=== PATIENT | female | born 1955 | race Caucasian/White ===

== ENCOUNTER 2020-01-04 10:15 | Emergency (ER) | payer BC, SELFPAY ==
[2020-01-04 10:40] VITALS: BP 122/73; PULSE 85; RESP 18; TEMP 36.8; O2SAT 98; BMI 27.9
--- NOTE | 2020-01-04 11:53 | ED_ITS ---
HPI - Extremity Problem <Liza Walsh PA-C - Last Filed: 01/04/20 14:00> General Chief complaint: Extremity Problem,Nontraumatic Stated complaint: something wrong with left leg Time Seen by Provider: 01/04/20 10:56 Source: patient Mode of arrival: Ambulatory Limitations: no limitations History of Present Illness HPI Narrative: This is a 64-year-old generally healthy woman with a history of hypothyroid and gastric ulcers who presents to the emergency department complaining of left calf pain for the last 3 weeks intermittently that has been worsening. She states the pain is always in the back of her calf and feels very deep sometimes it is lower in her calf sometimes it is behind her knee and occasionally it is in the back of her lower thigh just above her knee she describes it as like a tight blood pressure cuff and also like a burning sensation. She said last night was so bad she just could not even get in a good position to sleep. She and her are currently living locally [place] a boat however they just returned from a cross-country RV trip about 2 weeks ago. Her symptoms began 3 weeks ago during this trip and they note that she rarely had a chance to get out and walk around as they were attempting to social distance so they spent almost all of their time in the RV, driving eating sleeping etc. she also notes that at about the same time. She began feeling occasional dizziness particularly when she is bending over and stands up. She says this is not sev ere but it is something that is new for her. She notes toward the end of the ED visit that she has been told before that she has rheumatoid arthritis based on a lab result and issues with ?inflammation? but that she has been evaluated by doctors and they did not feel that she had rheumatoid arthritis based on their exam is, however she was supposed to have some additional workup for this done. She denies any current use of estrogen products, and she is not a smoker. She also denies any fever, chills, nausea, vomiting, shortness of breath, abdominal pain, chest pain, swelling or heat her left lower leg or any other symptoms. MD Complaint: extremity pain Onset (ago): week(s) (3) Pain Consistency: intermittent Location: left and lower extremity Quality: aching and other (Like there is a blood pressure cuff squeezing the inside of my leg) Radiation: other (Moves and is in different places at different times) Relieving factors: nothing Exacerbating factors: nothing Associated symptoms: other (has had some dizziness occasionally in the past 3 weeks) Context: recent travel and immobilization (barely moving physically for a few weeks 3 weeks ago) Related Data Allergies Allergy/AdvReac Type Severity Reaction Status Date / Time levofloxacin [From Levaquin] AdvReac Severe ITCHING Verified 01/04/20 10:59 fatemeh-bid AdvReac Severe ITCHING Uncoded 01/04/20 10:59 Review of Systems <Liza Walsh PA-C - Last Filed: 01/04/20 14:00> Review of Systems Narrative: GENERAL: Denies chills, fatigue, malaise, fever, sweats. HEENT: Denies sinus pain, ear pain, sore throat, difficulty swallowing, positive for occasional dizziness, noted with standing from leaning forward. RESPIRATORY: Denies dyspnea, cough, wheezing, hemoptysis, sputum. CARDIOVASCULAR: Denies chest pain, palpitations, orthopnea, edema, GASTROINTESTINAL: Denies nausea, vomiting, abdominal pain, diarrhea, constipation, melena. : Denies dysuria, frequency, incontinence, hematuria, urinary retention. MUSCULOSKELETAL: Positive for left calf pain pain in the back of her knee and pain just above the back of her knee on the left, denies weakness, joint pain, or bony pain SKIN: Denies rash, skin lesions, or other NEUROLOGIC: Denies weakness, headache, numbness, change in speech, confusion, seizures, incoordination. PSYCHIATRIC: No concerning psychosocial issues. 12 point review of systems is negative except for those stated above Patient History <Liza Walsh PA-C - Last Filed: 01/04/20 14:00> Social History Smoking Status: Never smoker Smoking Status: Never smoker alcohol intake frequency: a few times a month Substance Use Type: does not use Exam <Liza Walsh PA-C - Last Filed: 01/04/20 14:00> Initial Vital Signs Initial Vital Signs: Vital Signs Temperature 98.2 F 01/04/20 10:40 Pulse Rate 85 01/04/20 10:40 Respiratory Rate 18 01/04/20 10:40 Blood Pressure 122/73 01/04/20 10:40 Pulse Oximetry 98 01/04/20 10:40 <Keshawn La MD - Last Filed: 01/05/20 07:29> Initial Vital Signs Initial Vital Signs: Vital Signs Temperature 98.2 F 01/04/20 10:40 Pulse Rate 85 01/04/20 10:40 Respiratory Rate 18 01/04/20 10:40 Blood Pressure 122/73 01/04/20 10:40 Pulse Oximetry 98 01/04/20 10:40 Scores <Liza Walsh PA-C - Last Filed: 01/04/20 14:00> GCS Adeel coma scale eye opening: Spontaneous [place] coma scale verbal response: Orientated Ade[place] coma scale motor response: Obey commands [place] coma scale total score: 15 Wells' Criteria for DVT Active Cancer (Treatment within 6 months): No Bedridden recently >3 days or major surgery within 4 weeks: No Calf Swelling >3cm compared to other leg: No Collateral (nonvericose) superficial veins present: No Entire leg swollen: No Localized tenderness along the deep vein system: No Pitting edema, confined to symtomatic leg: No Paralysis, paresis, or recent plaster immobilization of ext: No Previously documented DVT: No Alternative dx to DVT as likely or more likely: No Wells' criteria for DVT: 0 Course <Liza Walsh PA-C - Last Filed: 01/04/20 14:00> Orders Ordered: ED Orders 01/04/20 11:59 US periph venous low extrem lt Stat 01/04/20 12:15 Complete Blood Count AUTO DIFF Stat Comprehensive Metabolic Panel Stat D Dimer Stat Partial Thromboplastin Time Stat Prothrombin Time INR Stat 01/04/20 12:18 Magnesium Stat 01/04/20 12:42 EKG-12 Lead Stat Vital Signs Vital signs: Vital Signs - 8 hr 01/04/20 10:40 Temperature 98.2 F Pulse Rate 85 Respiratory Rate 18 Blood Pressure 122/73 Pulse Oximetry 98 <Keshawn La MD - Last Filed: 01/05/20 07:29> Orders Ordered: ED Orders 01/04/20 11:59 US periph venous low extrem lt Stat 01/04/20 12:15 Complete Blood Count AUTO DIFF Stat Comprehensive Metabolic Panel Stat D Dimer Stat Partial Thromboplastin Time Stat Prothrombin Time INR Stat 01/04/20 12:18 Magnesium Stat 01/04/20 12:42 EKG-12 Lead Stat Vital Signs Vital signs: Vital Signs - 8 hr 01/04/20 10:40 Temperature 98.2 F Pulse Rate 85 Respiratory Rate 18 Blood Pressure 122/73 Pulse Oximetry 98 MDM - Extremity (Nontraumatic) <Liza Walsh PA-C - Last Filed: 01/04/20 14:00> Lab Data Result diagrams: 01/04/20 12:15 01/04/20 12:15 Labs: Lab Results 01/04/20 01/04/20 01/04/20 Range/Units 12:15 12:15 12:15 WBC 5.0 (4.5-11.0) X10^3/uL RBC 4.67 (4.0-5.2) X10^6/uL Hgb 14.4 (12.0-16.0) g/dL Hct 42.3 (36-46) % MCV 90.5 (80-100) fL MCH 30.7 (26-34) PG MCHC 34.0 (30-36) % RDW 14.5 (11.6-14.8) % Plt Count 228 (150-400) X10^3/uL Neut % (Auto) 42.3 L (50-75) % Lymph % (Auto) 44.2 H (25-40) % [place] % (Auto) 7.9 (3-14) % Eos % (Auto) 4.9 H (2-4) % Baso % (Auto) 0.7 (0-2) % Neut # (Auto) 2100 (8819-4300) /uL Lymph # (Auto) 2200 (1421-4074) /uL [place] # (Auto) 400 (0-900) /uL Eos # (Auto) 200 (0-450) /uL Baso # (Auto) 0 (0-100) /uL PT 11.1 (10.1-12.7) SECONDS INR 1.0 (0.9-1.3) APTT 31 (26.4-36.2) SECONDS D-Dimer < 200 (<230) ng/mL Sodium 139 (137-145) mmol/L Potassium 4.3 (3.4-5.1) mmol/L Chloride 104 (98-107) mmol/L Carbon Dioxide 31 (22-32) mmol/L BUN 15 (7-17) mg/dL Creatinine 0.56 (0.52-1.04) mg/dL Estimated GFR > 60.0 (>60) mL/min BUN/Creatinine Ratio 26.8 H (6-22) Glucose 94 (80-110) mg/dL Calcium 9.6 (8.4-10.2) mg/dL Magnesium (1.6-2.3) mg/dL Total Bilirubin 0.6 (0.2-1.3) mg/dL AST 29 (14-36) IU/L ALT 21 (<35) IU/L Alkaline Phosphatase 101 (38-126) U/L Total Protein 7.4 (6.3-8.2) g/dL Albumin 4.4 (3.5-5.0) g/dL Globulin 3.0 (1.7-4.1) g/dL Albumin/Globulin Ratio 1.5 (1.0-2.8) 01/04/20 Range/Units 12:18 WBC (4.5-11.0) X10^3/uL RBC (4.0-5.2) X10^6/uL Hgb (12.0-16.0) g/dL Hct (36-46) % MCV (80-100) fL MCH (26-34) PG MCHC (30-36) % RDW (11.6-14.8) % Plt Count (150-400) X10^3/uL Neut % (Auto) (50-75) % Lymph % (Auto) (25-40) % [place] % (Auto) (3-14) % Eos % (Auto) (2-4) % Baso % (Auto) (0-2) % Neut # (Auto) (5256-8316) /uL Lymph # (Auto) (4832-9232) /uL [place] # (Auto) (0-900) /uL Eos # (Auto) (0-450) /uL Baso # (Auto) (0-100) /uL PT (10.1-12.7) SECONDS INR (0.9-1.3) APTT (26.4-36.2) SECONDS D-Dimer (<230) ng/mL Sodium (137-145) mmol/L Potassium (3.4-5.1) mmol/L Chloride (98-107) mmol/L Carbon Dioxide (22-32) mmol/L BUN (7-17) mg/dL Creatinine (0.52-1.04) mg/dL Estimated GFR (>60) mL/min BUN/Creatinine Ratio (6-22) Glucose (80-110) mg/dL Calcium (8.4-10.2) mg/dL Magnesium 2.4 H (1.6-2.3) mg/dL Total Bilirubin (0.2-1.3) mg/dL AST (14-36) IU/L ALT (<35) IU/L Alkaline Phosphatase (38-126) U/L Total Protein (6.3-8.2) g/dL Albumin (3.5-5.0) g/dL Globulin (1.7-4.1) g/dL Albumin/Globulin Ratio (1.0-2.8) Imaging Data US - DVT: Attestation: I personally reviewed and interpreted this imaging study as follows: Radiologist's Impression: [place] [address] Ultrasound Report Signed Patient: Anabell Henning LMR#: [id number] : 5Acct:[id number] Age/Sex: 64 / FDate of Service: 01/04/20 Loc: ED Accession Number: [id number] Procedure: US periph venous low extrem lt Ordering Provider: Liza Walsh P.A-C PROCEDURE: US PERIPH VENOUS LOW EXTREM LT INDICATIONS: CALF PAIN TECHNIQUE: Real-time imaging, as well as color and pulse Doppler interrogation, were performed of the lower extremity deep veins from the inguinal ligament to the popliteal fossa. COMPARISON: None. FINDINGS: The common femoral, femoral and popliteal veins are normally compressible, and free of intraluminal thrombus. Color and pulse Doppler demonstrate normal phasic intraluminal flow. There is normal augmentation response to distal compression maneuver. IMPRESSION: No deep venous thrombosis. Dictated by: Ramila Junior M.D. on 01/04/2020 at 13:45 Approved by: Ramila Junior M.D. on 01/04/2020 at 13:45 ECG Data Attestation EKG: I personally reviewed and interpreted this ECG as follows: Prior ECG tracings: not available for review Interpretation: Normal sinus rhythm normal EKG ventricular rate 61, PA interval 130, QRS duration 88 QTC 418 P axis 5? R axis 60? T axis 35 MDM Narrative Medical decision making narrative: This is a 64-year-old woman with a history of gastric ulcers, hypothyroid, and possible rheumatoid arthritis who presents to the emergency department complaining of 3 weeks of left lower leg pain that feel s tight in the middle of her leg, varies in location and is also burning sensation. She also notes that she has had occasional dizziness in the last 3 weeks. Differential diagnosis considered include DVT, restless leg syndrome, neuropathic pain, arterial occlusion, musculoskeletal pain, rheumatoid related pain Labs were unremarkable, as was her EKG and her ultrasound. There is no evidence of DVT or acute pathology based on findings today. Clear cause of her occasional dizziness is not established, however could be related to dehydration. Based on the description of her pain I suspect it is neuropathic, and she reports she has taken gabapentin before for neuropathic neck pain related to a possible rheumatoid arthritis (she stop the gabapentin as it made her head feel funny). She did not have her RA workup fully completed including an MRI which she was not able to have originally due to claustrophobia. Discussed with the Patient the importance of establishing a primary care physici an here locally as the patient lives here 3-6 months out of the year and in [place] 6 months out of the year where she receives her medical care normally. Emergency return precautions were provided, all questions were answered. <Keshawn La MD - Last Filed: 01/05/20 07:29> Lab Data Labs: Lab Results 01/04/20 01/04/20 01/04/20 Range/Units 12:15 12:15 12:15 WBC 5.0 (4.5-11.0) X10^3/uL RBC 4.67 (4.0-5.2) X10^6/uL Hgb 14.4 (12.0-16.0) g/dL Hct 42.3 (36-46) % MCV 90.5 (80-100) fL MCH 30.7 (26-34) PG MCHC 34.0 (30-36) % RDW 14.5 (11.6-14.8) % Plt Count 228 (150-400) X10^3/uL Neut % (Auto) 42.3 L (50-75) % Lymph % (Auto) 44.2 H (25-40) % [place] % (Auto) 7.9 (3-14) % Eos % (Auto) 4.9 H (2-4) % Baso % (Auto) 0.7 (0-2) % Neut # (Auto) 2100 (0374-7990) /uL Lymph # (Auto) 2200 (5761-9084) /uL [place] # (Auto) 400 (0-900) /uL Eos # (Auto) 200 (0-450) /uL Baso # (Auto) 0 (0-100) /uL PT 11.1 (10.1-12.7) SECONDS INR 1.0 (0.9-1.3) APTT 31 (26.4-36.2) SECONDS D-Dimer < 200 (<230) ng/mL Sodium 139 (137-145) mmol/L Potassium 4.3 (3.4-5.1) mmol/L Chloride 104 (98-107) mmol/L Carbon Dioxide 31 (22-32) mmol/L BUN 15 (7-17) mg/dL Creatinine 0.56 (0.52-1.04) mg/dL Estimated GFR > 60.0 (>60) mL/min BUN/Creatinine Ratio 26.8 H (6-22) Glucose 94 (80-110) mg/dL Calcium 9.6 (8.4-10.2) mg/dL Magnesium (1.6-2.3) mg/dL Total Bilirubin 0.6 (0.2-1.3) mg/dL AST 29 (14-36) IU/L ALT 21 (<35) IU/L Alkaline Phosphatase 101 (38-126) U/L Total Protein 7.4 (6.3-8.2) g/dL Albumin 4.4 (3.5-5.0) g/dL Globulin 3.0 (1.7-4.1) g/dL Albumin/Globulin Ratio 1.5 (1.0-2.8) 01/04/20 Range/Units 12:18 WBC (4.5-11.0) X10^3/uL RBC (4.0-5.2) X10^6/uL Hgb (12.0-16.0) g/dL Hct (36-46) % MCV (80-100) fL MCH (26-34) PG MCHC (30-36) % RDW (11.6-14.8) % Plt Count (150-400) X10^3/uL Neut % (Auto) (50-75) % Lymph % (Auto) (25-40) % [place] % (Auto) (3-14) % Eos % (Auto) (2-4) % Baso % (Auto) (0-2) % Neut # (Auto) (0273-3776) /uL Lymph # (Auto) (7714-3241) /uL [place] # (Auto) (0-900) /uL Eos # (Auto) (0-450) /uL Baso # (Auto) (0-100) /uL PT (10.1-12.7) SECONDS INR (0.9-1.3) APTT (26.4-36.2) SECONDS D-Dimer (<230) ng/mL Sodium (137-145) mmol/L Potassium (3.4-5.1) mmol/L Chloride (98-107) mmol/L Carbon Dioxide (22-32) mmol/L BUN (7-17) mg/dL Creatinine (0.52-1.04) mg/dL Estimated GFR (>60) mL/min BUN/Creatinine Ratio (6-22) Glucose (80-110) mg/dL Calcium (8.4-10.2) mg/dL Magnesium 2.4 H (1.6-2.3) mg/dL Total Bilirubin (0.2-1.3) mg/dL AST (14-36) IU/L ALT (<35) IU/L Alkaline Phosphatase (38-126) U/L Total Protein (6.3-8.2) g/dL Albumin (3.5-5.0) g/dL Globulin (1.7-4.1) g/dL Albumin/Globulin Ratio (1.0-2.8) Discharge Plan Departure Patient Disposition: Home Clinical Impression: Chronic pain of left lower extremity Discharge Date/Time: 01/04/20 13:57 Activity Restrictions/Additional Instructions: Thank you for allowing us to be part of your care in the emergency department today. There is no evidence of an emergent or life threatening illness at this time, but follow up with your doctor in 1-2 days is recommended nonetheless to continue to rule out serious underlying causes of your symptoms. Please call the office for an appointment. Please return to the Emergency Department for any worsening or persistent symptoms. Please take medications as directed. Thankfully your ultrasound and labs today looked good, and there is no evidence that you have a blood clot in your leg. But I do not have a good answer for what is causing your ongoing left leg pain and discomfort, and I strongly recommend that you establish care with a primary care physician here locally as your here generally for about half of the year, I am also referring you to Rheumatology as you has some history with rheumatologic complaints and there is a possibility that this could be connected with the discomfort that you have been having but that will need further exploration with your primary care physician and possibly the expertise of a ground service equipment mechanic. If he experience any new or worsening symptoms or anything else of concern to you do not hesitate to seek medical care. Referrals: [facility] [Outside] [facility] [Non-Staff] - (RA hx; new chronic leg pain--establish care w/ rheum locally)
--- NOTE | 2020-01-04 11:59 | DI.US.S_ITS ---
PROCEDURE: US PERIPH VENOUS LOW EXTREM LT INDICATIONS: CALF PAIN TECHNIQUE: Real-time imaging, as well as color and pulse Doppler interrogation, were performed of the lower extremity deep veins from the inguinal ligament to the popliteal fossa. COMPARISON: None. FINDINGS: The common femoral, femoral and popliteal veins are normally compressible, and free of intraluminal thrombus. Color and pulse Doppler demonstrate normal phasic intraluminal flow. There is normal augmentation response to distal compression maneuver. IMPRESSION: No deep venous thrombosis. Dictated by: Ramila Junior M.D. on 01/04/2020 at 13:45 Approved by: Ramila Junior M.D. on 01/04/2020 at 13:45
[2020-01-04 12:24] LABS: Add Manual Diff / Slide Review NO; Basophils Absolute Auto 0 /uL (0-100); Basophils Percent Auto 0.7 % (0-2); Eosinophils Absolute Auto 200 /uL (0-450); Eosinophils Percent Auto 4.9 % (2-4); Hematocrit 42.3 % (36-46); Hemoglobin 14.4 g/dL (12.0-16.0); Lymphocytes Absolute Auto 2200 /uL (1100-4500); Lymphocytes Percent Auto 44.2 % (25-40); Mean Corpuscular Hemoglobin 30.7 PG (26-34); Mean Corpuscular Volume 90.5 fL (80-100); Monocytes Absolute Auto 400 /uL (0-900); Monocytes Percent Auto 7.9 % (3-14); Neutrophils Absolute Auto 2100 /uL (1500-7000); Neutrophils Percent Auto 42.3 % (50-75); Platelet Count 228 X10^3/uL (150-400); Red Blood Cell Count 4.67 X10^6/uL (4.0-5.2); Red Cell Distribution Width 14.5 % (11.6-14.8)
[2020-01-04 12:31] LABS: Prothrombin Time 11.1 SECONDS (10.1-12.7)
[2020-01-04 12:34] LABS: D Dimer < 200 ng/mL (<230); PTT Partial Thromboplastin Tim 31 SECONDS (26.4-36.2)
[2020-01-04 12:35] LABS: Alanine Aminotransferase 21 IU/L (<35); Albumin 4.4 g/dL (3.5-5.0); Albumin Globulin Ratio 1.5 (1.0-2.8); Alkaline Phosphatase 101 U/L (38-126); Aspartate Aminotransferase 29 IU/L (14-36); BUN Creatinine Ratio 26.8 (6-22); Bilirubin Total 0.6 mg/dL (0.2-1.3); Blood Urea Nitrogen 15 mg/dL (7-17); Calcium 9.6 mg/dL (8.4-10.2); Carbon Dioxide 31 mmol/L (22-32); Chloride 104 mmol/L (98-107); Estimated Glomerular Filt Rate > 60.0 mL/min (>60); Glucose 94 mg/dL (80-110); HEMOLYSIS < 15 (0-50); Potassium 4.3 mmol/L (3.4-5.1); Sodium 139 mmol/L (137-145); Total Protein 7.4 g/dL (6.3-8.2)
[2020-01-04 13:05] LABS: Magnesium 2.4 mg/dL (1.6-2.3)
[2020-01-04 13:55] VITALS: BP 103/68; PULSE 73; RESP 20; O2SAT 87
== END 2020-01-04 13:57 | disposition home or self-care (01) ==
PROVIDERS: Emergency Provider Student in an Organized Health Care Education/Training Program
DX: M79.605 Pain in left leg (principal)
CPT/HCPCS: 36415; 80053; 83735; 85025; 85379; 85610; 85730; 93005; 93971; 99283; 99284

== ENCOUNTER 2020-01-25 08:24 | Emergency (ER) | payer BC, SELFPAY ==
[2020-01-25 08:31] VITALS: BP 146/77; PULSE 87; RESP 18; TEMP 36.4; O2SAT 97; BMI 28.3
[2020-01-25 08:48] LABS: Bacteria Urine None Seen; WBC Urine None Seen (0-5/HPF)
[2020-01-25 08:53] LABS: Culture Indicated Urine Cult Not Indicated; RBC Urine 5-10/HPF (0-5/HPF)
--- NOTE | 2020-01-25 08:56 | ED.BACK ---
HPI - Back Pain/Injury General Chief Complaint: Back Pain/Injury Stated Complaint: fell a week ago, things not better Time Seen by Provider: 01/25/20 08:41 Source: patient History of Present Illness HPI Narrative: CC: acute back pain HPI: The patient is a 64-year-old female who was seen in the emergency department on January 03 for pain in her calf thought to be due to deep vein thrombophlebitis after a long [place]country RV trip. The patient lives on a boat. The patient states that that pain and discomfort has resolved. She now states that she fell 1 week ago on the aft stairs of her boat. She did not strike her head lose consciousness or injure her neck. She did injure her low back and her right lower back and right posterior lateral ribs. She states that she had pain and discomfort on deep breathing and movement. She has developed increased urinary frequency and urgency. She states that her pain is 5 to 7/10 in intensity. It is a combination of a dull achy discomfort that is sharp and stabbing with any type of movement. She states that she has had a history of 3 small ulcers and has only been taking Tylenol for the pain and discomfort because she is afraid to take any ibuprofen or Aleve because of the ulcers. She denies any indigestion heartburn melena hematochezia. She has had some mild constipation that was relieved by Ducolax. She has had increased urinary frequency and urgency associated with spasms of her back. She during the day when she is upright and moving stiffly she is able to function but has been unable to sleep at night because she cannot find a comfortable position. She has a past history of an SVT ablations. She denies a history of diabetes mellitus hypertension myocardial infarction or asthma. She denies smoking cigarettes rarely drinks alcohol does not use any marijuana. She denies any significant shortness of breath but complains of chest pain when she coughs the breeze sneeze. She she has had a minimal dry cough without fever chills or sweats. She denies any headache or neck pain change in vision. She has had no melena or hematochezia. Related Data Previous Rx's Medication Instructions Recorded cyclobenzaprine 10 mg PO TID PRN #15 tab 01/25/20 hydrocodone-acetaminophen [Florence] 1 tab PO Q4-6H PRN #15 tab 01/25/20 ibuprofen 600 mg PO Q6H PRN #20 tab 01/25/20 lidocaine 2 patch TOP DAILY PRN #15 each 01/25/20 omeprazole magnesium [Prilosec OTC] 20 mg PO BID #20 tab 01/25/20 Allergies Allergy/AdvReac Type Severity Reaction Status Date / Time levofloxacin [From Levaquin] AdvReac Severe ITCHING Verified 01/25/20 08:31 fatemeh-bid AdvReac Severe ITCHING Uncoded 01/25/20 08:31 Review of Systems Review of Systems Narrative: Her review of systems were all negative except for those mentioned in the history of present illness. Patient History Social History Smoking Status: Never smoker Smoking Status: Never smoker alcohol intake frequency: a few times a month Substance Use Type: does not use Exam Narrative Exam Narrative: PHYSICAL EXAM: CONSTITUTIONAL: Awake, Alert, Oriented, Coherent, Cooperative in moderate distress moving very slowly and holding her body rigid and stiff. HEAD: AT/NC EENT: PERRL, FROM of eyes,. NOSE:No epistaxis or nasal drainage MOUTH:Oral mucosa is moist and pink, posterior pharynx is without erythema or exudate. NECK: Supple, no obvious JVD, Trachea is midline without stridor, no palpable LN. SPINE: Palpation of the cervical, Thoracic, spine reveals no gross deformity or tenderness. However, she is diffusely tender to palpation over her lumbar spine and upper sacrum. She is tender to palpation over her right SI joint. The right costovertebral angle has a yellow brown bruise. There is no left costovertebral angle tenderness. THORAX: No deformity, retractions.However, her right lateral lower posterior ribs are exquisitely tender to palpation without appreciable deformity or crepitus. LUNGS: Clear, symmetrical breath sounds without respiratory distress. The patient has splinted respirations on the right. HEART: Normal heart tones, regular rhythm and rate without murmur. ABDOMEN: Soft, non-tender, no guarding, rebound, rigidity or palpable mass. EXTREMITIES: No edema, deformity, tenderness or cyanosis. SKIN: No rash, bruising other than the right posterior costovertebral angle, petechiae or purpura. NEURO: Awake, alert, oriented, conversive, cranial nerves II-XII are symmetrical , moves all 4 extremities and is ambulatory. MENTAL HEALTH: Does not appear anxious or depressed. Initial Vital Signs Initial Vital Signs: Vital Signs Temperature 97.6 F 01/25/20 08:31 Pulse Rate 87 01/25/20 08:31 Respiratory Rate 18 01/25/20 08:31 Blood Pressure 146/77 H 01/25/20 08:31 Pulse Oximetry 97 01/25/20 08:31 Course Course Course Narrative: 1110: CT of Chest revealed IMPRESSION: Acute right posterior 10th and 11th rib fractures, no pneumothorax, mild right pleural effusion and right lung base atelectasis, versus post-traumatic pulmonary contusion in that area (considered less likely than atelectasis). No additional abnormality found. No thoracic spine compression fracture seen. CT of Lumbar Spine revealed: IMPRESSION: No spine compression fracture is found but there is an acute appearing medial right 10th rib fracture without evidence of adjacent post-traumatic hematoma. No trauma to the spinal column is found. The patient will be discharged home on Florence for her pain and discomfort and a lidoderm patch as well as cyclobenzaprine as amuscle rlaxer. Orders Ordered: Discontinued Medications Cyclobenzaprine HCl (Flexeril) 10 mg PO NOW ONE Stop: 01/25/20 08:57 Last Admin: 01/25/20 09:10 Dose: 10 mg Documented by: ENZO Ketorolac Tromethamine (Toradol) 30 mg IV NOW ONE Stop: 01/25/20 08:57 Last Admin: 01/25/20 09:10 Dose: 30 mg Documented by: ENZO Morphine Sulfate (Morphine) 4 mg IV NOW ONE Stop: 01/25/20 08:57 Last Admin: 01/25/20 09:10 Dose: 4 mg Documented by: ENZO Vital Signs Vital signs: Vital Signs - 8 hr 01/25/20 08:31 01/25/20 10:58 Temperature 97.6 F Pulse Rate 87 65 Respiratory Rate 18 14 Blood Pressure 146/77 H 96/63 Pulse Oximetry 97 97 MDM - Back Pain/Injury Lab Data Result diagrams: 01/25/20 09:04 01/25/20 09:04 Labs: Lab Results 01/25/20 01/25/20 01/25/20 Range/Units 08:40 09:04 09:04 WBC 4.2 L (4.5-11.0) X10^3/uL RBC 4.47 (4.0-5.2) X10^6/uL Hgb 13.5 (12.0-16.0) g/dL Hct 40.4 (36-46) % MCV 90.4 (80-100) fL MCH 30.1 (26-34) PG MCHC 33.3 (30-36) % RDW 14.3 (11.6-14.8) % Plt Count 241 (150-400) X10^3/uL Neut % (Auto) 50.1 (50-75) % Lymph % (Auto) 38.2 (25-40) % [place] % (Auto) 7.1 (3-14) % Eos % (Auto) 3.9 (2-4) % Baso % (Auto) 0.7 (0-2) % Neut # (Auto) 2100 (7434-0810) /uL Lymph # (Auto) 1600 (3450-7537) /uL Lawrence # (Auto) 300 (0-900) /uL Eos # (Auto) 200 (0-450) /uL Baso # (Auto) 0 (0-100) /uL Sodium 137 (137-145) mmol/L Potassium 4.4 (3.4-5.1) mmol/L Chloride 104 (98-107) mmol/L Carbon Dioxide 28 (22-32) mmol/L BUN 16 (7-17) mg/dL Creatinine 0.56 (0.52-1.04) mg/dL Estimated GFR > 60.0 (>60) mL/min BUN/Creatinine Ratio 28.6 H (6-22) Glucose 106 (80-110) mg/dL Calcium 9.4 (8.4-10.2) mg/dL Total Bilirubin 0.7 (0.2-1.3) mg/dL AST 27 (14-36) IU/L ALT 19 (<35) IU/L Alkaline Phosphatase 98 (38-126) U/L Total Protein 7.1 (6.3-8.2) g/dL Albumin 4.3 (3.5-5.0) g/dL Globulin 2.8 (1.7-4.1) g/dL Albumin/Globulin Ratio 1.5 (1.0-2.8) Urine RBC 5-10/hpf H (0-5/HPF) Urine WBC None seen (0-5/HPF) Urine Bacteria None seen (None) Ur Culture Indicated? Cult not indicated Urine Dip Bedside Urine Glucose Negative Bedside Urine Bilirubin - Negative Bedside Urine Ketone - Negative Urine Specific [place] 1.025 Bedside Urine Occult Blood ++ Bedside Urine pH 6.0 Bedside Urine Protein - Negative Bedside Urine Urobilinogen - Negative Bedside Urine Nitrite - Negative Bedside Urine Leukocytes - Negative Esterase Discharge Plan Departure Patient Disposition: Home Clinical Impression: Acute chest wall pain, Rib pain, Urinary frequency, Atelectasis Low back pain Qualifiers: Chronicity: acute Back pain laterality: right Sciatica presence: without sciatica Qualified Code(s): M54.5 - Low back pain Closed rib fracture Qualifiers: Encounter type: initial encounter Rib fracture type: multiple ribs Laterality: right Qualified Code(s): S22.41XA - Multiple fractures of ribs, right side, initial encounter for closed fracture Discharge Date/Time: 01/25/20 11:52 Instructions: DI for Rib Fracture, DI for Back Spasm Activity Restrictions/Additional Instructions: 1. You need to follow-up with your primary care physician to be re-evaluated in 48-72 hours. 2. You need to use an incentive spirometer to keep from developing a pneumonia and further atelectasis and collapse of your lungs. 3. Take Lidoderm patch as directed and placed directly over the area of maximum pain and discomfort 4. Take the Florence as directed for pain and discomfort as prescribed. 5. Use the cyclobenzaprine as a muscle relaxer to help manage the pain and discomfort as prescribed. 6. He did take the Prilosec 20 mg twice a day while taking ibuprofen to help manage her pain and discomfort. 7. You can take ibuprofen 600 mg every 6-8 hours for pain and discomfort. 8. If you develop worsening pain or discomfort, fever, cough, dizziness lightheadedness, racing of your heart feelings faint or or passing-out you need to return to the emergency department. Prescriptions: New lidocaine 5 % adhesive patch,medicated 2 patch TOP DAILY PRN (Reason: pain, severe) Qty: 15 RF: 0 ibuprofen 600 mg tablet 600 mg PO Q6H PRN (Reason: pain) Qty: 20 RF: 0 omeprazole magnesium [Prilosec OTC] 20 mg tablet,delayed release (DR/EC) 20 mg PO BID Qty: 20 RF: 1 cyclobenzaprine 10 mg tablet 10 mg PO TID PRN (Reason: muscle spasm) Qty: 15 RF: 0 hydrocodone-acetaminophen [Florence] 5-325 mg tablet 1 tab PO Q4-6H PRN (Reason: pain) Qty: 15 RF: 0
--- NOTE | 2020-01-25 08:57 | DI.CT.S_ITS ---
PROCEDURE: CT LUMBAR SPINE WO CON INDICATIONS: low back pain after a fall 1 week ago TECHNIQUE: Noncontrast 3 mm thick sections acquired from the T12 level to the sacrum. Sagittal and coronal reformats were constructed. For radiation dose reduction, the following was used: automated exposure control. COMPARISON: None. FINDINGS: Image quality: Excellent. Bones: There is normal bony alignment. No acute vertebral body compression fractures. No suspicious lytic or blastic bony lesions. Central spinal caliber is of normal overall caliber. No pars defects. Note is made of a mildly angulated acute appearing medial posterior right 11th rib fracture. This also was seen on chest CT scanning same day, accompanied by a similar right posterior medial 10th rib fracture. Note is made of chronic mild degenerative disc disease and [id number] facet osteoarthritis along the lower half of the LS spine, with mild foraminal stenosis symmetric bilaterally as a result Soft tissues: No retroperitoneal masses or hematomas. Visualized aorta is normal in caliber. IMPRESSION: No spine compression fracture is found but there is an acute appearing medial right 10th rib fracture without evidence of adjacent post-traumatic hematoma. No trauma to the spinal column is found. Dictated by: Eren Ding M.D. on 01/25/2020 at 10:12 Approved by: Eren Ding M.D. on 01/25/2020 at 10:15
[2020-01-25 09:10] LABS: Add Manual Diff / Slide Review NO; Basophils Absolute Auto 0 /uL (0-100); Basophils Percent Auto 0.7 % (0-2); Eosinophils Absolute Auto 200 /uL (0-450); Eosinophils Percent Auto 3.9 % (2-4); Hematocrit 40.4 % (36-46); Hemoglobin 13.5 g/dL (12.0-16.0); Lymphocytes Absolute Auto 1600 /uL (1100-4500); Lymphocytes Percent Auto 38.2 % (25-40); Mean Corpuscular HGB Conc 33.3 % (30-36); Mean Corpuscular Hemoglobin 30.1 PG (26-34); Mean Corpuscular Volume 90.4 fL (80-100); Monocytes Absolute Auto 300 /uL (0-900); Monocytes Percent Auto 7.1 % (3-14); Neutrophils Absolute Auto 2100 /uL (1500-7000); Neutrophils Percent Auto 50.1 % (50-75); Platelet Count 241 X10^3/uL (150-400); Red Blood Cell Count 4.47 X10^6/uL (4.0-5.2); Red Cell Distribution Width 14.3 % (11.6-14.8); White Blood Cell Count 4.2 X10^3/uL (4.5-11.0)
[2020-01-25] MEDS: CYCLOBENZAPRINE 10 MG TABLET PO (09:10)
[2020-01-25] MEDS: KETOROLAC 60 MG/2 ML VIAL 30 MG IV (09:10)
[2020-01-25] MEDS: MORPHINE 4 MG/ML INJ IV (09:10)
[2020-01-25 09:21] LABS: Alanine Aminotransferase 19 IU/L (<35); Albumin 4.3 g/dL (3.5-5.0); Albumin Globulin Ratio 1.5 (1.0-2.8); Alkaline Phosphatase 98 U/L (38-126); Aspartate Aminotransferase 27 IU/L (14-36); BUN Creatinine Ratio 28.6 (6-22); Bilirubin Total 0.7 mg/dL (0.2-1.3); Blood Urea Nitrogen 16 mg/dL (7-17); Calcium 9.4 mg/dL (8.4-10.2); Carbon Dioxide 28 mmol/L (22-32); Chloride 104 mmol/L (98-107); Estimated Glomerular Filt Rate > 60.0 mL/min (>60); Globulin 2.8 g/dL (1.7-4.1); Glucose 106 mg/dL (80-110); HEMOLYSIS < 15 (0-50); Potassium 4.4 mmol/L (3.4-5.1); Sodium 137 mmol/L (137-145); Total Protein 7.1 g/dL (6.3-8.2)
--- NOTE | 2020-01-25 09:48 | DI.CT.S_ITS ---
PROCEDURE: CT CHEST W CON INDICATIONS: Fall 1 week ago, right chest wall pain on movement and cough TECHNIQUE: After the administration of intravenous contrast, 5 mm thick sections acquired from the pulmonary apices to the posterior costophrenic angles. 1 mm axial lung, 5 mm thick coronal and sagittal reformats and 7 mm axial MIP were acquired. For radiation dose reduction, the following was used: automated exposure control, adjustment of mA and/or kV according to patient size. COMPARISON: None. FINDINGS: Image quality: Excellent. Lungs and pleura: No acute air space opacities. No pleural effusions or pneumothorax. Central and peripheral airways are patent and normal in caliber. Mediastinum: Heart size is normal. No pericardial effusion. No mediastinal or hilar adenopathy by size criteria. Thoracic aorta and central pulmonary arteries are normal in size. Esophagus is normal in caliber. No hiatal hernia. Bones and chest wall: No suspicious bony lesions. No vertebral body compression fractures. No axillary or supraclavicular adenopathy by size criteria. Thyroid gland appears normal where well seen. . Note is made of medial posterior right 10th and 11th rib fractures near the spinal margin, slightly displaced. No associated pneumothorax, but there is a small right-sided pleural effusion and right lung base pulmonary contusion or atelectasis. Abdomen: Visualized upper abdominal solid organs appear normal. Upper abdominal bowel loops are normal in caliber. IMPRESSION: Acute right posterior 10th and 11th rib fractures, no pneumothorax, mild right pleural effusion and right lung base atelectasis, versus post-traumatic pulmonary contusion in that area (considered less likely than atelectasis). No additional abnormality found. No thoracic spine compression fracture seen. Dictated by: Eren Ding M.D. on 01/25/2020 at 10:04 Approved by: Eren Ding M.D. on 01/25/2020 at 10:12
[2020-01-25 10:58] VITALS: BP 96/63; PULSE 65; RESP 14; O2SAT 97
[2020-01-25 11:51] VITALS: BP 114/66; PULSE 65; O2SAT 99
--- NOTE | 2020-01-25 11:52 | PC.NURSE ---
Incentive Spirometer training done by RT
== END 2020-01-25 11:52 | disposition home or self-care (01) ==
PROVIDERS: Emergency Provider Emergency Medicine
DX: R07.89 Other chest pain (principal); S22.41XA Multiple fractures of ribs, right side, initial encounter for closed fracture; R35.0 Frequency of micturition; J98.11 Atelectasis; M54.5 Low back pain; W19.XXXA Unspecified fall, initial encounter
CPT/HCPCS: 36415; 71260; 72131; 80053; 81003; 81015; 85025; 96374; 96375; 99284; J1885; J2270; Q9967

== ENCOUNTER → 2020-01-29 14:38 | Outpatient (CLI) | payer BC, SELFPAY ==
[2020-01-29 15:30] LABS: Rheumatoid Factor 14.3 IU/mL (<12.0)
[2020-01-29 15:58] LABS: TSH w/ Reflex to FT4 1.77 uIU/mL (0.47-4.68)
== END ==
PROVIDERS: Referring Provider Registered Nurse; Visit Provider Registered Nurse
DX: E03.9 Hypothyroidism, unspecified (principal); Z87.39 Personal history of other diseases of the musculoskeletal system and connective tissue
CPT/HCPCS: 36415; 84443; 86430

== ENCOUNTER → 2020-03-27 08:36 | Outpatient (CLI) | payer BC, SELFPAY ==
--- NOTE | 2020-03-27 08:39 | DI.RAD.S_ITS ---
PROCEDURE: XR HAND LT MIN 3V INDICATIONS: left thumb pain 10 days no trauma TECHNIQUE: 3 views of the hand(s) acquired. COMPARISON: None. FINDINGS: Bones: No fractures or dislocations. Carpal bones are normally aligned. No suspicious bony lesions. Mild polyarticular joint narrowing with periarticular osteophytosis. Juxta-articular lucencies present involving the 2nd MCP as well as the 3rd PIP, DIP and 4th DIP joints. Soft tissues: No suspicious soft tissue calcifications. IMPRESSION: Diffuse joint degeneration and juxta-articular lucencies which may represent small erosions. Inflammatory arthropathy cannot be excluded and clinical correlation is recommended. Dictated by: Celestino CROFT Interpreted: Harsh Singh MD on 03/27/2020 at 9:39 Approved by: Harsh Singh M.D. on 03/27/2020 at 16:47
== END ==
PROVIDERS: PCP Registered Nurse; Referring Provider Registered Nurse; Visit Provider Registered Nurse
DX: M79.645 Pain in left finger(s) (principal); M19.042 Primary osteoarthritis, left hand
CPT/HCPCS: 73130